=== PATIENT | female | born 1995 | race Caucasian/White ===

== ENCOUNTER 2024-03-16 09:02 | Outpatient (CLI) | payer OTHER, SELFPAY ==
--- NOTE | 2024-03-16 09:15 | CRLHL7_ITS ---
For Patients: As a result of the Cures Act, medical imaging exams and procedure reports are released immediately into your electronic medical record. You may view this report before your referring provider. If you have questions, please contact your health care provider. HISTORY: Dating and viability COMPARISON: None available of this gestation. TECHNIQUE: Transabdominal ultrasound examination of the early was performed. FINDINGS: A single intrauterine gestational sac is seen with a pole. The crown-rump length measurement of 3.6 cm gives an estimated gestational age of 10 weeks 3 days with an estimated date of delivery of 07/09/2024. This correlates well with the LMP of 01/03/2024 which gives a clinical age of 10 weeks 3 days. Regular cardiac activity is seen at 171 BPM. There is no sign of free fluid in the pelvis. There is a thick walled cyst in the right ovary measuring 2.0 x 1.5 x 1.7 centimeters consistent with a corpus luteum cyst of . The ovaries are otherwise normal in appearance. IMPRESSION: Single intrauterine gestation with estimated age of 10 weeks 3 days. Regular cardiac activity is seen. Dictated by Feng Gray MD @ 03/16/2024 10:55:47 AM (Electronically Signed)
== END 2024-03-16 09:03 | disposition home or self-care (01) ==
LOC: US 09:04
PROVIDERS: Visit Provider Advanced Practice Midwife
DX: Z34.91 Encounter for supervision of normal pregnancy, unspecified, first trimester (principal); Z3A.10 10 weeks gestation of pregnancy
CPT/HCPCS: 76801

== ENCOUNTER 2024-03-16 10:29 | Outpatient (CLI) | payer OTHER, SELFPAY | END 2024-03-16 10:30 | disposition home or self-care (01) | PROVIDERS: Visit Provider Advanced Practice Midwife | DX: Z34.91 Encounter for supervision of normal pregnancy, unspecified, first trimester (principal); Z3A.10 10 weeks gestation of pregnancy | CPT/HCPCS: 83021; 86592; 86703; 86704; 86706; 86762; 86787; 86803; 86850; 86900; 86901; 87086; 87340 ==

== ENCOUNTER 2024-04-20 09:36 | Outpatient (CLI) | payer OTHER, SELFPAY | END 2024-04-20 09:37 | disposition home or self-care (01) | LOC: NFLDREF 04-21 09:00 | PROVIDERS: PCP Advanced Practice Midwife; Visit Provider Advanced Practice Midwife | DX: Z34.02 Encounter for supervision of normal first pregnancy, second trimester (principal) | CPT/HCPCS: 87491; 87591 ==

== ENCOUNTER 2024-06-01 07:16 | Outpatient (CLI) | payer OTHER, SELFPAY | END 2024-06-01 07:17 | disposition home or self-care (01) | LOC: US 07:18 | PROVIDERS: Visit Provider Advanced Practice Midwife | DX: Z34.92 Encounter for supervision of normal pregnancy, unspecified, second trimester (principal); O35.GXX0 Maternal care for other (suspected) fetal abnormality and damage, fetal upper extremities anomalies, not applicable or unspecified; O35.HXX0 Maternal care for other (suspected) fetal abnormality and damage, fetal lower extremities anomalies, not applicable or unspecified; Z3A.21 21 weeks gestation of pregnancy | CPT/HCPCS: 76805 ==

== ENCOUNTER 2024-09-14 09:29 | Outpatient (CLI) | payer OTHER, SELFPAY ==
[2024-09-15 12:53] LABS: Strep B DNA Probe Negative (Negative)
[2024-09-15 13:03] LABS: Strep B Susceptibility Needed? No
== END 2024-09-14 09:30 | disposition home or self-care (01) ==
LOC: NFLDREF 09:29
PROVIDERS: Visit Provider Advanced Practice Midwife
DX: Z34.03 Encounter for supervision of normal first pregnancy, third trimester (principal)
CPT/HCPCS: 87081; 87653

== ENCOUNTER 2024-10-03 06:48 | Inpatient (IN) | payer OTHER, SELFPAY ==
[2024-10-03] VITALS (32 sets, daily range): BP systolic 92–130; BP diastolic 54–73; PULSE 73–105; RESP 16–20; TEMP 36.4–37.1; O2SAT 91–99; BMI 29.9
--- NOTE | 2024-10-03 08:42 | P.LDBA_ITS ---
Subjective History of Present Illness Date Seen: 10/03/24 Narrative: Patient is being admitted to Labor and Delivery for SROM. She is a 29 year old at 39.1 weeks gestation. Her full history and physical was dictated by Wayne Reynolds CNM on 09/21/24. Please see this for details. Cris experienced SROM at home yesterday around 2200 with a moderate amount of clear fluid per her report. She did call to inform the unit but choose to stay home at that time. She presented to the unit this am. Stated that she has had a few sporadic contractions but nothing regular and has only felt a few contractions since she arrived on the unit. Declined AmniSure. Educated on implications of declining and she is comfortable with the risks/benefits. She is continuing to leak a small amount of clear amniotic fluid on a regular basis since the original rupture. We had an in depth conversation about options for continuing to progress labor. We discussed the option of expectant management and the decreasing odds of spontaneous labor after almost 12 hours post ROM. We discussed risks of prolonged ROM and risk for infection. We discussed option of augmentation including Pitocin titration and PO Cytotec. Spent a significant amount of time discussing options, risks, benefits, and answering questions of Cris and her partner. She would like to proceed with PO Cytotec and will consider reevaluating after 2 doses or PRN. Encouraged resting if able since she endorses minimal sleep overnight and labor warm up and other methods of encouraging labor if she is unable to rest. Specific Issues/Plans / Partner: Сергей? H&P:? 09/21/2024 By Gail # Possible circumvallate placenta, recommended follow-up in 3rd trimester: declines # Missing anatomy of hands and feet, follow-up declined 1-2 weeks of home glucose monitoring completed, all values WNL. Unable to get numbers to forward from monitor. Imaging:? Anatomy US 06/01/2023-1. Possible circumvallate placenta. Third trimester follow-up recommended. 2. Incomplete visualization of the hands and feet due to position. Remainder of the anatomic survey normal. Short-term follow- up recommended. 3. Concordance of clinical and sonographic dating. 4. Mild bilateral renal pelviectasis measures up to 3.1 mm. This is considered within normal limits. Vaccinations:?? COVID: declined Flu: declined? Tdap: declined 32 week mental health: 08/17/2024? Last pap:? 12/2023 NIL, neg HPV? OB - Problem Based A/P Additional Plan (1) PROM (premature rupture of membranes): Status: Acute (2) Circumvallate placenta: Status: Acute Plan ASSESSMENT:? 29 at 39.1 weeks gestation? complicated by:?curcumvallate placenta Labor type: PROM, Early labor? Category 1 FHR pattern.?? Labor complicated by: ROM>10 hours without onset of contractions. ? GBS negative? ? PLAN:? 1. Routine intrapartum cares as ordered. Reviewed options of expectant management, PO Cytotec, or IV Pitocin titration. Elected to proceed with 2 doses of Cytotec and will evaluate after these 2 doses or PRN.? 2. Monitoring per policy, continuous with Cytotec per policy. 3. IV not needed at this time. Consider if patient condition changes per policy. 4. Planning unmedicated . Candidate for analgesia of choice.?? 5. Patient encouraged to reposition and ambulate to promote physiologic labor and .? 6. Anticipate ? Delivery/Labor/Induction Plan Plan: other (augmentation ) Induction method: per misoprostol protocol OB Result Labs Blood Type: B (+) positive Rubella: immune RPR/VDLR: nonreactive GBS Status: negative HBsAG: negative OB Exam Physical Exam Vital signs: Temp Pulse Resp BP Pulse Ox 98.3 F 73 18 92/54 L 98 10/03/24 07:44 10/03/24 06:13 10/03/24 06:13 10/03/24 06:13 10/03/24 06:13 Narrative: Psychiatric:? Alert and oriented x3? HEENT:? Normocephalic, atraumatic? Neck:? Supple without adenopathy or thyromegaly? Lungs:? Clear to auscultation bilaterally? Heart:? Regular rate and rhythm, no murmur, rub or gallop? Abdomen:? Soft, nontender, and gravid? Extremities:? No edema or erythema? Detailed Labor and Delivery Exam Patient Gravid: yes Dilation (cm): 1 (fingertip per RN exam ) Contraction Frequency: rare Contraction intensity: Mild
[2024-10-03] MEDS: miSOPROStoL 25 MCG/0.25 TABLET PO (09:35)
--- NOTE | 2024-10-03 12:34 | P.OBPN_ITS ---
Subjective Time Seen by Provider: 12:30 Date Seen: 10/03/24 Narrative: Cris received one dose of Cytotec and shortly after started kalli regularly. States that they are more painful than her ones prior to admit and that she is breathing with the, She is feeling them in her lower abdomen with some wrapping around to her back although she is starting to feel them in her upper abdomen as well. the next dose of Cytotec has been held. She is currently sitting on the birthing ball and was encouraged to continue with position changes to help promote labor and position. Offered SVE if she desired but discussed that it would not change plan of care at this time so she declined. She continues to leak clear fluid. 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 29 at 39.1 weeks gestation? complicated by:?curcumvallate placenta Labor type: PROM, Early labor, augmented ? Category 1 FHR pattern.?? Labor complicated by: SROM >12 hours ? GBS negative? ? PLAN:? 1. Routine intrapartum cares as ordered. Reviewed options of expectant management or addition of IV Pitocin titration. Elects to proceed with expectant management at this time. Will reevaluat if contractions don't continue to increase in intensity and frequency or PRN.? 2. Monitoring per policy, intermittent. 3. IV not needed at this time. Consider if patient condition changes per policy. 4. Planning unmedicated . Candidate for analgesia of choice.?? 5. Patient encouraged to reposition and ambulate to promote physiologic labor and .? 6. Anticipate ?
--- NOTE | 2024-10-03 16:12 | PM.OBPNL ---
Objective Vital Signs: Last Vital Signs Temp 98.2 F 10/03/24 15:27 Pulse 78 10/03/24 14:50 Resp 18 10/03/24 14:50 BP 130/73 10/03/24 14:50 Pulse Ox 99 10/03/24 14:50 Contractions Monitor mode: External Contraction pattern: Regular Contraction intensity: Moderate Assessment Amniotic Membrane Status: SROM Status: Category l Heart Rate Baseline: 135 Monitor Accelerations: Present Monitor Decelerations: None
--- NOTE | 2024-10-03 21:27 | P.OBPN_ITS ---
Subjective Time Seen by Provider: 19:45 Date Seen: 10/03/24 Narrative: Cris has continued to contract since this afternoon but they have decreased from every 2-3 minutes to every 2-5 minutes. She is breathing with them but is coping well. We discussed option of a SVE at this time and she was agreeable. She was found to be 1.5cm/90%/-2. We discussed options for continuing with labor including expectant management, IV Pitocin, and epidural analgesia. After a lengthy discussion with Cris and her partner and they had lots of questions. They took a long time to discuss and decided to proceed with Pitocin titration. She is considering an epidural and did discuss getting it now but has decided to wait and see how she tong with contractions. 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 29 at 39.1 weeks gestation? complicated by:?curcumvallate placenta Labor type: PROM, Early labor, augmented ? Category 1 FHR pattern.?? Labor complicated by: SROM >20 hours ? GBS negative? ? PLAN:? 1. Routine intrapartum cares as ordered. Reviewed options of expectant management or IV Pitocin titration. Elects to proceed with Pitocin titration at this time. 2. Monitoring per policy, continuous. 3. IV to be placed for Pitocin titration per policy. 4. Planning unmedicated . Candidate for analgesia of choice.?Considering epidural.? 5. Patient encouraged to reposition and ambulate to promote physiologic labor and .? 6. Anticipate .?
[2024-10-03 21:35] LABS: Basophils Percent Auto 0.1 % (0.0-3.0); Hematocrit 38.8 % (33.0-51.0); Hemoglobin* 13.4 gm/dL (12.0-16.0); Immature Granulocytes Pct Auto 0.4 %; Lymphocytes Percent Auto 4.7 % (20-44); Mean Corpuscular HGB Conc 35 gm/dL (32-36); Mean Corpuscular Hemoglobin 31 pg (26-34); Mean Corpuscular Volume 88 fL (80-100); Monocytes Percent Auto 2.8 % (0.0-11.0); Platelet Count* 188 K/uL (140-440); RDW Coefficient of Variation % 12.7 % (11.5-15.5); Red Blood Count 4.39 m/uL (4.00-5.20); White Blood Count* 16.12 K/uL (4.50-11.00)
[2024-10-03] MEDS: LACTATED RINGERS 1000 ML 1,000 ML 125 ML IV (21:36)
[2024-10-03] MEDS: OXYTOCIN 30 unit/500 ML in NS 30 UNIT/500 ML BAG IVPB (21:38)
[2024-10-03 21:59] LABS: Slide Review Reflex No
[2024-10-03] MEDS: LACTATED RINGERS 1000 ML 1,000 ML IV (23:26)
[2024-10-03] MEDS: LIDOCAINE 2% (PF) 5 ML VIAL EPIDURAL (23:31)
[2024-10-03] MEDS: ROPIVACAINE 0.2 % PF 10 ML INJ 20 MG EPIDURAL (23:37)
[2024-10-03] MEDS: ROPIVACAINE 0.2% 100 ml 100 ML 12 MG EPIDURAL (23:42)
--- NOTE | 2024-10-03 23:52 | PM.ANBPRC ---
PFSH PFSH Surgical History [place] teeth extracted ?K08.409 - Partial loss of teeth, unspecified cause, unspecified class (ICD-10) History of tonsillectomy and adenoidectomy ?Z90.89 - Acquired absence of other organs (ICD-10) Family History Mother No problems noted. Father No problems noted. Social History Narrative: SOCIAL? ? Education: Bachelors? ? 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 ? Partner: Сергей? works as mortician Lives with: Сергей ? ? Pets: none? ? Abuse: Denies past ? Unable to assess current, partner present? ? Special Diet: Denies? ? Ok with a blood transfusion: yes? ? Culture or episcopalian beliefs: denies? RISK FACTORS? ? Exercise Times/wk: 4-5 days a week, walking and lifting weights? ? Depression/Anxiety: denies? ? Previous Treatments NA ? Therapy NA SHANNAN: 0 PHQ 9: 0? ? Seat Belt Use: Routinely ? Smoking: Denies past/present? ? Alcohol/day: Denies while ? ?rare use when not Caffeine: occasional coffee? ? Drug Use: Denies past/present? What is your current living situation?: I presently have a place to live Problems where you live: no known problems In the past 12 months, utilities in danger of being shut off: no In past 12 months, lack of transportation kept you from medical appts, meetings, work, or getting things needed for daily living: no In the past 12 mos, have been you worried that your food would run out before you had money to buy more?: never true In the past 12 mos, the food you bought just didn't last and you didn't have money to buy more?: never true Smoking Status: Never smoker How often does anyone, including family, friends and others, physically hurt you: never How often does anyone, including family, friends and others, insult or talk down to you: never How often does anyone, including family, friends and others, threaten you with harm: never How often does anyone, including family, friends and others, scream or curse at you: never Meds Home Medications and Allergies Home Medications ?Medication ?Instructions ?Recorded ?Confirmed ?Type PMR-etvt-PR-omega 3 fatty no.1 27 1 cap PO DAILY 03/16/24 10/03/24 History mg-1 mg-300 mg capsule omega 9-sox-hmo-fish oil 1,200 mg 1 cap PO QDAY 03/16/24 10/03/24 History (144 mg-216 mg) capsule (Fish Oil) cholecalciferol (vitamin D3) 250 250 mcg PO QDAY 04/20/24 10/03/24 History mcg (10,000 unit) capsule Allergies Allergy/AdvReac Type Severity Reaction Status Date / Time No Known Drug Allergies Allergy Verified 09/28/24 08:54 Results Labs Labs: Laboratory Results - last 24 hr 10/03/24 21:29 WBC 16.12 H RBC 4.39 Hgb 13.4 Hct 38.8 MCV 88 MCH 31 MCHC 35 RDW Coeff of Wayne 12.7 Plt Count 188 Neut % (Auto) 92.0 H Lymph % (Auto) 4.7 L [place] % (Auto) 2.8 Eos % (Auto) 0.0 Baso % (Auto) 0.1 Neut # (Auto) 14.80 H Lymph # (Auto) 0.80 L [place] # (Auto) 0.50 Eos # (Auto) 0.00 Baso # (Auto) 0.00 Abs Immat Gran (auto) 0.10 Imm/Tot Granulo (auto) 0.4 Blood Type B Positive Antibody Screen NEGATIVE Vital Signs Vital Signs: Last Vital Signs Temp 98.5 F 10/03/24 23:01 Pulse 88 10/03/24 23:50 Resp 16 10/03/24 21:44 BP 125/56 L 10/03/24 23:50 Pulse Ox 98 10/03/24 23:41 Weight: 81.647 kg Height: 165.1 cm Anesthesia Procedures Epidural Insertion Patient Location: OB Start Time: 23:00 Stop Time: 23:54 Start Date: 10/03/24 Stop Date: 10/03/24 Reason for Block: procedure for pain Patient Position: sitting Performed By: Matthew Guillen Preanesthetic Checklist: IV checked, risks and benefits discussed, surgical consent, monitors and equipment checked, pre-op evaluation, timeout performed and anesthesia consent Prep: chlorhexidine gluconate Monitoring: blood pressure monitoring, continuous pulse oximetry and heart rate Approach: midline Vertebral Space: lumbar (1-5) Epidural Technique: HANH air Needle Type: Tuohy needle Injection Technique: continuous catheter Needle gauge: 17 Needle Length (cm): 10 cm Needle Insertion Depth (cm): 7 Catheter Gauge: 19 Catheter Type: multi-orifice Catheter at skin depth (cm): 13 Test Dose Result: negative and lidocaine 1.5% with epinephrine 1 to 200,000
[2024-10-04] VITALS (84 sets, daily range): BP systolic 96–146; BP diastolic 50–73; PULSE 70–112; RESP 14–18; TEMP 36.4–38; O2SAT 93–99
[2024-10-04] MEDS: LACTATED RINGERS 1000 ML 1,000 ML 500 ML IV (05:37)
[2024-10-04] MEDS: ROPIVACAINE 0.2% 100 ml 100 ML 12 MG EPIDURAL (06:41)
[2024-10-04] MEDS: ACETAMINOPHEN 500 MG TABLET 1000 MG PO ×2 (06:54→12:54)
--- NOTE | 2024-10-04 07:13 | P.OBPN_ITS ---
Subjective Time Seen by Provider: 06:40 Date Seen: 10/04/24 Narrative: Cris has a Pitocin titration infusing and did receive an epidural last evening which is effective. She was able to get some rest over night and has been repositioned frequently with help from the staff development coordinator rn. RN cervical exam around 0450 did show 6cm/thin/0 station. At 0620 I was asked to review the FHR tracing. I reviewed and came in to evaluate and discuss with the patient. She was also found to have a fever of 100.4 at that time. On review the strip baseline increased from 145 to 155's with moderate variability but no 15x15 accelerations noted for greater than 1.5 hours. I did a SVE around 0645 and she was found to be 8cm/90%/0 station. She did feel very warm on exam. We discussed chorioamnionitis, the signs/symptoms of it and its implications on labor, delivery and health. We discussed the recommendation for a delivery as it is anticipate she is still likely multiple hours away from delivery vaginally. We discussed in depth the risks to Cris and the fetus with delayed delivery. They had lots of questions about antibiotics and their implications on babies health. We discussed the risks of antibiotic in labor and with a delivery vs the risks if they would need IV antibiotics after . Ambrosio was updated of the situation at the patients bedside per her request. They requested a short time to discuss between themselves before ultiimatly making a decision. She was appropriatly tearful during this conversation. Care handed off to Ambrosio at this time. Objective Vital Signs: Last Vital Signs Temp 100.3 F H 10/04/24 06:50 Pulse 105 H 10/04/24 06:35 Resp 18 10/04/24 06:19 BP 103/50 L 10/04/24 06:35 Pulse Ox 98 10/03/24 23:41 Pelvic Exam Dilation (cm): 8 Effacement (%): 90 Station: 0 Contractions Monitor mode: External Contraction Frequency: 2-5 Contraction pattern: Regular Contraction intensity: Strong/Firm Pitocin Rate (mU/min): 7 Assessment Assessment: active labor Station: 0 Amniotic Membrane Status: SROM Status: Category l Heart Rate Baseline: 155 Mcfp Variability: Moderate (6-25) Monitor Accelerations: Absent Monitor Decelerations: None Plan Plan: ASSESSMENT:? 29 at 39.2 weeks gestation? complicated by:?curcumvallate placenta Labor type: SROM, active labor, augmented with Pitocin, maternal fever with suspected chorioamnionitis ? Category 2 FHR pattern.?? Labor complicated by: SROM >33 hours ? GBS negative? ? PLAN:? 1. Discussed and recommended proceeding to delivery. They are given time to discuss and process. Questions have been answered. 2. Monitoring per policy, continuous. 4. Effective epidural in place.? 5. Patient encouraged to reposition and ambulate to promote physiologic labor and .? 6. Report given and care handed off to Gloria Stahl CNM?
[2024-10-04] MEDS: LACTATED RINGERS 1000 ML 1,000 ML 125 ML IV (07:33)
[2024-10-04] MEDS: AMPICILLIN 2 GM in 0.9 % SODIUM CHLORIDE Mini-bag 100 ML IVPB ×2 (07:54→13:47)
--- NOTE | 2024-10-04 07:57 | P.OBCN_ITS ---
OB - CN: HPI Date of Consult Time Seen by Provider: 07:45 Date Seen: 10/04/24 Patient: [facility] Patient Consult date: 10/04/24 Requesting Physician: Ambrosio Stahl CNM Primary Care Provider: Not a Local Provider Consult Narrative Narrative: Delayed documentation due to patient care. Cris is a 29yo at 39w2d GA admitted on 10/03 for PROM at 2200 on 10/02. is complicated by circumvallate placenta, incomplete visualization of hands/feet on FAS (declined follow up), declined mid- labs (2 weeks of BG monitoring was normal). Patient has been managed by CNM service, where she received 1 dose of cytotec and pitocin was started at about 2200 on 10/03 when her cervix was 1.5cm dilated. She received epidural overnight, where cervix was then noted to be 6cm/100/0 at 0440 with appropriate change in the active phase of labor to 8cm at 0640. Category 2 FHR tracing intermittently during active phase of labor for minimal variability and tachycardia. Around 0630, she developed maternal chills and . She was diagnosed with intraamniotic infection given maternal fever, chills, maternal and tachycardia. I was consulted by Ambrosio Stahl at 0715 to discuss labor course and management of chorioamnionitis. Cris and her expressed concern with antibiotic therapy, where there was additionally some discussion about proceeding to by offcoming CNM in the setting of her new chorioamnionitis and category 2 FHR tracing. I requested tylenol and a IVF bolus be administered (if not done previously) and presented to the bedside. On arrival, Cris affirmed the above history. She notes that this was not her intended labor course and is understandably frustrated. She has several concerns about next steps. She notes her chills have temporarily improved. Pain is well controlled with epidural, though she does have some persistent back pain and her right leg feels less numb the left. Denies fundal tenderness or purulent discharge. History History 1 Elective abortions Para 0 Spontaneous abortions Hx # Term Pregnancies Ectopic pregnancies Hx # Pregnancies Multiple births Number of Living Children 0 Labs Blood type: B (+) positive Rubella: immune RPR/VDLR: nonreactive GBS status: negative HBsAG: negative OB Labs: Lab Assessment Start: 10/03/24 06:39 Freq: ONCE Status: Complete Protocol: PC.OBGBS Activity Type Activity Date Activity User E-sign Co-sign Detail Recorded Client Recorded Date Recorded By Document 10/03/24 06:39 [email or web address] No Response 10/03/24 07:02 [email or web address] 10/03/24 06:39 Lab Assessment GBS Status negative Is Patient Allergic to Penicillin? No No Treatment Needed OK Are Labs Available Yes Maternal Blood Type B Maternal RH Factor Positive Evaluate Maternal Rubella Immune Status Immune Hepatitis B Surface Antigen Negative Maternal HIV Status Negative Maternal Syphillis (RPR) Status Negative PFSH PFS Surgical History Hensel teeth extracted ?K08.409 - Partial loss of teeth, unspecified cause, unspecified class (ICD-10) History of tonsillectomy and adenoidectomy ?Z90.89 - Acquired absence of other organs (ICD-10) Family History Mother No problems noted. Father No problems noted. Social History Narrative: SOCIAL? ? Education: Bachelors? ? 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 ? Partner: Сергей? works as mortician Lives with: Сергей ? ? Pets: none? ? Abuse: Denies past ? Unable to assess current, partner present? ? Special Diet: Denies? ? Ok with a blood transfusion: yes? ? Culture or restorationist beliefs: denies? RISK FACTORS? ? Exercise Times/wk: 4-5 days a week, walking and lifting weights? ? Depression/Anxiety: denies? ? Previous Treatments NA ? Therapy NA SHANNAN: 0 PHQ 9: 0? ? Seat Belt Use: Routinely ? Smoking: Denies past/present? ? Alcohol/day: Denies while ? ?rare use when not Caffeine: occasional coffee? ? Drug Use: Denies past/present? What is your current living situation?: I presently have a place to live Problems where you live: no known problems In the past 12 months, utilities in danger of being shut off: no In past 12 months, lack of transportation kept you from medical appts, meetings, work, or getting things needed for daily living: no In the past 12 mos, have been you worried that your food would run out before you had money to buy more?: never true In the past 12 mos, the food you bought just didn't last and you didn't have money to buy more?: never true Smoking Status: Never smoker How often does anyone, including family, friends and others, physically hurt you : never How often does anyone, including family, friends and others, insult or talk down to you: never How often does anyone, including family, friends and others, threaten you with harm: never How often does anyone, including family, friends and others, scream or curse at you: never Meds Home Medications and Allergies Home Medications ?Medication ?Instructions ?Recorded ?Confirmed ?Type NVU-qezh-IN-omega 3 fatty no.1 27 1 cap PO DAILY 03/1610/03/24 History mg-1 mg-300 mg capsule omega 5-cvr-qgh-fish oil 1,200 mg 1 cap PO QDAY 10/03/24 History (144 mg-216 mg) capsule (Fish Oil) cholecalciferol (vitamin D3) 250 250 mcg PO QDAY 04/2010/03/24 History mcg (10,000 unit) capsule Allergies Allergy/AdvReac Type Severity Reaction Status Date / Time No Known Drug Allergies Allergy Verified 09/28/24 08:54 OB - H&P: Exam Physical Exam: Vital signs: Temp Pulse Resp BP Pulse Ox 100.3 F H 110 H 18 121/59 L 98 10/04/24 06:50 10/04/24 07:20 10/04/24 06:19 10/04/24 07:20 10/04/24 07:56 Narrative: VS as noted above. General: Alert and oriented, in no acute distress Psych: Appropriate mood and affect, intermittent tearfulness Abdomen: Gravid NST: Category 1 at present - baseline 155bpm, moderate variability, 10x10 accels seen and no decelerations [place]: Kalli in couplets, kalli every 2-6 minutes OB - Results Labs Labs: Short CBC 10/03/24 Range/Units 21:29 WBC 16.12 H (4.50-11.00) K/uL Hgb 13.4 (12.0-16.0) gm/dL Hct 38.8 (33.0-51.0) % Plt Count 188 (140-440) K/uL OB - CN: A/P Assessment and Plan (1) PROM (premature rupture of membranes): Status: Acute (2) Circumvallate placenta: Status: Acute Plan Cris is a 29yo ongoing IOL in the setting of PROM now complicated by chorioamnionitis. Consult was requested for discussion of IV antibiotics and labor management by Ambrosio Stahl CNM. See details above. We discussed the diagnosis of chorioamnionitis, including how that diagnosis was met for Cris by fevers, maternal/ tachycardia and chills. Discussed risk factor of prolonged ROM as a contributor to the development of chorioamnionitis. I explained the risks of this condition, including infection, tachycardia, nonreassuring heart tones, low APGARs and NICU admission. Explained maternal risks as well, including labor dystocia, delivery, PPH, endometritis and even maternal sepsis. Explained the standard of care in treatment of chorioamnionitis is IV antibiotics and timely delivery. Explained the chorioamnionitis in isolation is not an indication for C/S, however this would be recommended in the setting of labor dystocia or persistent category 2 FHR tracing. Fortunately, during my counseling the FHR was noted to improve to a baseline of 160bpm (then 150bpm) with moderate variability, 10x10 accelerations present, no decelerations. As such, I do feel it is reasonable to continue her induction of labor but I would recommend we do so with active management and close interval monitoring. I would strongly recommend we initiate IV antibiotics with ampicillin and gentamicin now, in order to improve both maternal and status and try to minimize the risks of chorioamnionitis. Cris and her expressed hesitance with this effort, where her 's sites a family member had micro volume issues and how immune conditions that they attribute to the use of intrapartum antibiotics. Though I understand their concerns, I explained that IV antibiotics would be the standard of care this setting. In addition, I am aware of no long-term studies to suggest harm (including microbiome/autoimmune) with the use of antibiotics for this clear indication rather I feel it would be significantly beneficial to improve the maternal/ status, minimize risks and hopefully avoid the setting of infection or sepsis after delivery. Her notes a worst case scenario outcome would include infection requiring IV antibiotics, where I explained the best thing we can do to try to prevent this is to start treatment with IV antibiotics and work toward delivery for source control. After counseling, Cris expressed understanding and is agreeable to plan. Her did ask a few further thoughtful questions, where ultimately they are in agreement. I explained that with treatment of chorioamnionitis and stable maternal/ status, we can continue her induction. Again, I explained that I would recommend we do so in an active fashion with continued titration of Pitocin pending heart rate/toco data. Explained that chorioamnionitis is a risk factor for labor dystocia due to suboptimal uterine contractibility as well as hemorrhage. If she were to have a labor dystocia in the active phase, I explained that we would have a lower threshold to proceed with primary . In addition, if she does achieve complete cervical dilation, we would diligently monitor for appropriate descent of the fetus through her 2nd stage as well. If we do proceed to , I explained pre-op antibiotics for surgical prophylaxis would be required (ampicillin and azithromycin) and one dose to 24 hours of ampicillin/gentamicin and clindamycin would be indicated. Regardless of her mode of delivery, I explained that it is possible that infection could still occur. In addition, she is at significantly increased risk of hemorrhage in the setting of prolonged rupture of membranes and chorioamnionitis. I explained the standard risks of including bleeding, infection, damage to surrounding structures - where if possible, a vaginal may lead to lower risk of hemorrhage and endometritis in the . Recommend active management of the 3rd stage with IV Pitocin and low threshold for further uterotonics/intervention if hemorrhage occurs. Patient expressed understanding and is agreeable to plan. Patient would like a cervical check to assess progress, as she is feeling more back/rectal pressure. IV ampicillin and gentamicin was started after patient consent. Gave patient her opportunity to answer any lingering questions, where no further questions were noted. They are agreeable to further MD consultation if needed, particularly in the setting of labor dystocia or nonreassuring heart tones that would prompt . Plan to resume care by Ambrosio Stahl CNM - with plan to actively manage the active phase of labor, 2nd stage and 3rd stage of labor. I am available for re-consultation at any point in time if needed and will follow peripherally in the interim.
--- NOTE | 2024-10-04 08:05 | PM.OBPNL ---
Subjective Date Seen: 10/04/24 Narrative: ?Cris is coping with labor pain/contractions. ?Сергей is with her for support. ?She is using an epidural for comfort and pain management.?We had a long conversation with Dr. Saenz about the plan of care going forward, see her note. They have agreed to antibiotic treatment at this time. She requested a cervical exam as she is feeling more back pain with contractions now. Discussed with them continuing to titrate IV Pitocin. Objective Exam: VSS, afebrile General Appearance:? Calm, cooperative. ?No acute distress. ? Psychiatric Exam: Alert and oriented, appropriate affect Abdomen: Gravid Ctx: ?Q 1-6 min apart. ? ? ?Strong FHTs: ?Baseline: 155. ? ? Variability: mod. ?Accels: +. ? ?Decels: ?-. SVE: 9/100/+1 Membranes: ?SROM >24 hours Vital Signs: Last Vital Signs Temp 100.3 F H 10/04/24 06:50 Pulse 110 H 10/04/24 07:20 Resp 18 10/04/24 06:19 BP 121/59 L 10/04/24 07:20 Pulse Ox 98 10/04/24 08:01 Pelvic Exam Dilation (cm): 8 Effacement (%): 90 Station: 0 Contractions Monitor mode: External Contraction pattern: Regular Contraction intensity: Strong/Firm Pitocin Rate (mU/min): 7 Assessment Assessment: active labor Station: +1 Amniotic Membrane Status: SROM Status: Category l Heart Rate Baseline: 155 Senior Living Variability: Moderate (6-25) Monitor Accelerations: Present Monitor Decelerations: None Plan Plan: Assessment:?? at 39.2 weeks gestation?? GBS negative Patient is coping with challenges of labor.?? Labor type: Augmented, Active labor? Category 1 FHR pattern.? complicated by: circumvallate placenta Labor complicated by: PROM >24 hours, chorioamnionitis Plan:?? Antibiotic prophylaxis treatment per protocol Continue with routine intrapartum cares as ordered.?? Patient encouraged to move and change positions to promote physiologic labor and , RN to assist.?? Epidural per anesthesia. Continue to titrate IV Pitocin per protocol Anticipate progress to NVD. ?
[2024-10-04] MEDS: GENTAMICIN IVPB (08:42)
[2024-10-04] MEDS: SODIUM CHLORIDE 0.9% IVPB (08:42)
--- NOTE | 2024-10-04 09:25 | PM.OBPNL ---
Subjective Date Seen: 10/04/24 Narrative: ?Cris is coping well with labor pain/contractions. ?Сергей is with her for support. ?She is using an epidural for comfort and pain management.?The RNs have been helping her do side lying release and other position changes over the last hour. She is feeling more rectal pressure with contractions. Сергей continues to ask questions around labor progress and antibiotic treatment, he is concerned about all the possibilities around delivery but is asking appropriate questions at this time. All questions answered as able and continue to communicate that there are many unknowns at this time. They are agreeable to current plan of care. Has started IV antibiotics. Objective Exam: VSS, afebrile General Appearance:? Calm, cooperative. ?No acute distress. ? Psychiatric Exam: Alert and oriented, appropriate affect Abdomen: Gravid Ctx: ?Q 2-3 min apart. ? ? ?Strong FHTs: ?Baseline: 150. ? ? Variability: moderate. ?Accels: +. ? ?Decels: ?-. SVE: 9/100/+1 Membranes: ?SROM >24 hours Vital Signs: Last Vital Signs Temp 99.6 F 10/04/24 08:06 Pulse 93 10/04/24 09:23 Resp 14 10/04/24 08:06 BP 108/52 L 10/04/24 09:23 Pulse Ox 98 10/04/24 09:22 Contractions Pitocin Rate (mU/min): 8 Assessment Amniotic Membrane Status: SROM Status: Category l Heart Rate Baseline: 150 Prototype Machine Operator Variability: Minimal (3-5) Monitor Accelerations: Present Monitor Decelerations: None Plan Plan: Assessment:?? at 39.2 weeks gestation?? GBS negative Patient is coping with challenges of labor.?? Labor type: Augmented, Active labor? Category 1 FHR pattern.? complicated by: circumvallate placenta Labor complicated by: PROM >24 hours, Chorioamnionitis Plan:?? Continue to titrate IV Pitocin per protocol Antibiotic prophylaxis treatment per protocol Continue with routine intrapartum cares as ordered.?? Patient helped to move and change positions to promote physiologic labor and .?? Epidural infusing per anesthesia Anticipate progress to NVD. ?
--- NOTE | 2024-10-04 10:38 | PM.OBPNL ---
Subjective Date Seen: 10/04/24 Narrative: ?Cris is feeling more rectal pressure and low back pain with contractions, she continues with her epidural for pain and is using the bolus doses. Сергей is at her bedside. She has made slow change in the last hour and is now a rim. There is an odor to her vaginal discharge and there is meconium. Objective Exam: VSS, afebrile General Appearance:? Calm, cooperative. ?No acute distress. ? Psychiatric Exam: Alert and oriented, appropriate affect Abdomen: Gravid Ctx: ?Q 1.5-3 min apart. ? ? ?Strong FHTs: ?Baseline: 140. ? ? Variability: moderate. ?Accels: -. ? ?Decels: ?one variable with contraction. SVE: 9.5/100/+1 Membranes: ?PROM > 24 hours. Vital Signs: Last Vital Signs Temp 97.7 F 10/04/24 10:22 Pulse 103 H 10/04/24 10:21 Resp 14 10/04/24 08:06 BP 109/55 L 10/04/24 10:21 Pulse Ox 99 10/04/24 09:42 Pelvic Exam Dilation (cm): 9.5 Effacement (%): 100 Station: +1 Contractions Monitor mode: External Contraction pattern: Regular Contraction intensity: Strong/Firm Pitocin Rate (mU/min): 14 Assessment Assessment: active labor Station: +1 Amniotic Membrane Status: SROM Status: Category ll Heart Rate Baseline: 140 Supervisor Grinding Variability: Moderate (6-25) Monitor Accelerations: Present Monitor Decelerations: Variable Plan Plan: Assessment:?? at 39.2 weeks gestation?? GBS neg Patient is coping well with challenges of labor.?? Labor type: Augmented, Active labor? Category 2 FHR pattern.? complicated by: circumvallate placenta Labor complicated by: PROM >24 hours, Chorioamnionitis Plan:?? Continue IV Pitocin per protocol Antibiotic prophylaxis treatment per protocol Continue with routine intrapartum cares as ordered.??? Epidural continues to infuse per anesthesia Anticipate progress to NVD. ?
--- NOTE | 2024-10-04 12:50 | W.PM.OBVAGDE ---
OB Procedure Vag Delivery Mother Details Mother Details: The patient is a 29 year-old, 1, Para 0, admitted on 10/03/24 at 39.1 weeks gestation. : 1 Para: 1 Weeks Gestation: 39.2 Admission Date: 10/03/24 Additional Details Amniotic Membrane Status: SROM Amniotic Membrane Rupture Date: 10/02/24 Amniotic Membrane Rupture Time: 22:30 Amniotic Membrane Fluid Description: Clear and Meconium Stained Analgesia/Anesthesia Type: Epidural Waterbirth: No Pitcoin: Yes Intrapartal Events: Labor Augmentation and Febrile (>100F) Delivery augmentation: pitocin Labor Onset: 04:40 Complete: 10:56 Pushin:56 Heart: heart tones during second stage were Cat II with moderate variability with occasional variable and early decelerations. Delivery Details Delivery Date: 10/04/24 Delivery Time: 12:16 Route of delivery: Infant Gender: Female Viability: Alive; Heart Rate Present Position at Delivery: OA Delivery Details: 29 y.o?at 39.2 weeks.? Cris was admitted with SROM of clear fluid which occurred on 10/02/24 at 2230. She was augmented with IV Pitocin per protocol and received an epidural for pain management. She developed a fever in labor, temp max 100.4, last fever was at 0650. She was started on IV antibiotics for probable chorioamnionitis. Her amniotic fluid was initially clear but near the end of her labor there was meconium staining noted. ? She became complete at 1056.??She pushed in low hugo and right tilt positions effectively.? Spontaneous vaginal delivery at 1216 of?a viable? female .??Delivered in vertex OA position.??Shoulders delivered easily.? Spontaneous cry noted.??Infant placed on maternal abdomen.??Cord?was clamped and cut after a 2 minute delay.??Nose and mouth were bulb suctioned.???Pedatric provider present in the room but did not need to take baby to warmer. Shoulder dystocia: no? Nuchal cord: no? Meconium stained?fluid: yes? Water : no? ? ? 8 at 1 minute and 9 at 5 minutes.? Weight is pending. ? Placenta delivered spontaneously and?complete?at 1223 with a?3 vessel?cord.?? Bleeding controlled with fundal massage and?pitocin?for AMTSL.? ? Lacerations:? ?1st degree with right labial extension, not bleeding, not repaired? ? Bleeding?post delivery?was: moderate. ?The fundus was firm to palpation.? Blood loss: 525?mL.? Blood loss measurement type: QBL? ? ? Sponge,?lap?and needles counts are correct.? Mother and infant were stable after delivery.? 1 Minute Interval Total Score: 8 5 Minute Interval Total Score: 9 Additional Details Shoulder Dystocia: No Placenta Delivery Time: 12:23 Placental Delivery Description: Spontaneous Procedure Done: Global Blood Loss: 525 Laceration: Perineal - 1st Degree Blood Loss Measurement Type: QBL Bakri Used: No Sponge/Need Count Correct: Yes Cord Vessel Description: 3 Vessels Event Summary Status: Mother and were stable after delivery. Disposition: floor
[2024-10-04] MEDS: IBUPROFEN 600 MG TABLET PO ×2 (13:46→20:36)
[2024-10-05 01:45] VITALS: BP 104/67; PULSE 72; RESP 16; TEMP 36.3
[2024-10-05 04:52] VITALS: BP 110/70; PULSE 73; RESP 16; TEMP 36.7; O2SAT 96
--- NOTE | 2024-10-05 07:57 | PM.OBPNVD1 ---
OB - PN:Subj Subjective Date Seen: 10/05/24 Patient comments OB post-: no complaints, pain well controlled, tolerating diet and flatus present [place] status: and doing well [place] feeding status: exclusively Narrative: Cris feels well.? Her pain is well controlled with current medications.? She has no new complaints.? Urinary output is adequate and she is voiding without difficulty.? Has a good appetite, is tolerating a general diet, is passing flatus, and has had a bowel movement.? Has scant amount of rubra lochia.? She is ambulating well.?She is working on with help. They state they had a very good experience and are grateful for the care and teams they have had. OB - PN: Obj Exam Physical Exam: Vital signs: Temp Pulse Resp BP Pulse Ox O2 Del Method 98.0 F 73 16 110/70 96 Room Air 10/05/24 04:52 10/05/24 04:52 10/05/24 04:52 10/05/24 04:52 10/05/24 04:52 10/05/24 04:52 Narrative: GENERAL APPEARANCE:? normal affect, alert, no distress? MOOD:? appropriate? CHEST:? clear to auscultation and percussion? HEART:? regular rate and rhythm? ABDOMEN:? soft, non-tender the uterine fundus is U/2 and is appropriate for the stage of recovery.? PERINEUM:? mild edema of the perineum, there is a 1st degree laceration that is healing well.? EXTREMITIES:? normal and no edema? OB - PN: A/P Delivery Assessment and Plan (1) PROM (premature rupture of membranes): Status: Acute (2) Circumvallate placenta: Status: Acute (3) Lactating mother: Status: Acute (4) care following vaginal delivery: Status: Acute (5) Prolonged rupture of membranes, greater than 24 hours, delivered: Status: Acute Plan day: 1 Plan: routine care Comments: Anticipate discharge home tomorrow.
[2024-10-05 08:40] VITALS: BP 111/72; PULSE 79; RESP 16; TEMP 36.4; O2SAT 98
--- NOTE | 2024-10-05 09:22 | PM.ANPOST ---
Post Anesthesia Note Post Anesthesia Note Patient seen: Inpatient Respiratory Status: adequate Cardiovascular Status: adequate Mental Status: baseline Pain: adequate Temp: baseline Anesthetic awareness: N/A Complications: none Follow care: none
[2024-10-05 12:15] VITALS: BP 118/66; PULSE 90; RESP 16; TEMP 36.5; O2SAT 97
[2024-10-05 14:33] LABS: Rapid Plasma Reagin (RPR) Non Reactive (Non Reactive)
[2024-10-05] MEDS: IBUPROFEN 600 MG TABLET PO (19:55)
[2024-10-05 21:05] VITALS: BP 110/74; PULSE 91; RESP 17; TEMP 36.5
[2024-10-06 04:44] VITALS: BP 108/68; PULSE 66; RESP 17; TEMP 36.6; O2SAT 98
--- NOTE | 2024-10-06 07:11 | PM.OBDSVD1 ---
DS: Providers Provider Date Seen: 10/06/24 Date of admission: 10/03/24 06:48 Primary care physician: Not a Local Provider Admitting Clinician: Naz Mcclendon CNM Attending Physician on discharge: Naz Mcclendon CNM DS: Diagnosis Discharge Diagnosis (1) care following vaginal delivery: Status: Acute (2) Chorioamnionitis: Status: Acute (3) Lactating mother: Status: Acute (4) Prolonged rupture of membranes, greater than 24 hours, delivered: Status: Acute Exam Narrative: Exam Narrative: GENERAL APPEARANCE:? normal affect, alert, no distress MOOD:? appropriate CHEST:? clear to auscultation HEART:? regular rate and rhythm ABDOMEN:? soft, non-tender the uterine fundus is At Umbilicus, Midline and is appropriate for the stage of recovery. PERINEUM:? mild edema of the perineum, there is a Perineal Laceration,?1st degree, that is healing well. EXTREMITIES:? normal and no edema Const: Vital Signs, click to edit/add: Vital Signs - 24 hr 10/05/24 08:40 10/05/24 12:15 10/05/24 21:05 Temperature 97.5 F L 97.7 F 97.7 F Pulse Rate [Pulse Oximeter] 79 90 91 Respiratory Rate 16 16 17 Blood Pressure [Le ft Arm] 111/72 118/66 110/74 Pulse Oximetry 98 97 Oxygen Delivery Me thod Room Air Room Air Room Air 10/06/24 04:44 Temperature 97.9 F Pulse Rate [Pulse Oximeter] 66 Respiratory Rate 17 Blood Pressure [Le ft Arm] 108/68 Pulse Oximetry 98 Oxygen Delivery Me thod Room Air Documenting provider has reviewed patient's vital signs: yes OB - DS: Summary Hospital Course Hospital Course: Cris is a 29 y.o. G 1 P 1 who was admitted to [facility]. ?She had a NVD that was complicated by chorioamnionitis. The patient feels well. ?The pain is well controlled with current medications. ?She has no new complaints. ?She is breast feeding and reports things are going well. the patient has done well.? Vitals have been stable. She has remained afebrile since delivery. She received antibiotics.? Has a good appetite, is tolerating a general diet. ?She is voiding without difficulty.? She is passing gas and has had a small bowel movement.? She is ambulating and denies any dizziness.? Has small amount of rubra lochia. She is planning NFP for prevention. Problems: None Discharge home with baby.? Follow up in 2 weeks and 6 weeks.? , may see if needed? Hgb 13.4. ?? For pain control of perineum, breast and pelvic pain, take 600 mg Ibuprofen every 6 hours as needed by mouth or 1000 mg acetaminophen (Tylenol) every 6 hours by mouth as needed. You can alternate these so you are taking something every 3 hours as needed. A heating pad can also be used for your abdomen or breasts. You may also take docusate sodium up to twice daily to soften your stools and help to prevent constipation. You may wean off of it when your stools return to normal.? Peripartum Data delivery method: Vaginal Laceration description: Perineal - 1st Degree (not repaired) complications: none Gender: Female Discharge Plan: Home Status at Discharge Functional status at discharge: independent ambulation Overall status at discharge: patient is progressing back to baseline Time Spent with Patient Time attestation: Total time spent providing and/or coordinating discharge services: Time spent: Less than 30 minutes Discharge Plan Discharge Disposition: Home, Self-Care Date of Admission: 10/03/24 06:48 Attending Provider on Discharge: Naz Mcclendon Primary Care Provider: Provider,Not a Local Condition: Stable Anticipated Discharge Date/Time: 10/06/24 12:00 Discharge Medications: New acetaminophen 500 mg Tablet 1,000 mg PO Q6H PRNQty: 0 0RF ibuprofen 600 mg Tablet 600 mg PO Q6H PRNQty: 0 0RF docusate sodium 100 mg Capsule 100 mg PO DAILY Qty: 0 0RF Continued cholecalciferol (vitamin D3) 250 mcg (10,000 unit) capsule 250 mcg PO QDAY VFY-yxon-UC-omega 3 fatty no.1 27-1-300 mg capsule 1 cap PO DAILY omega 2-mjv-zcn-fish oil [Fish Oil] 1,200 (144-216) mg capsule 1 cap PO QDAY Discharge Orders: Discharge Order (Routine); Ordered 10/06/24 Ordered By: Naz Mcclendon Patient Education: OB Over the Counter Medication Information, OB Vaginal/Breast Feeding Additional Instructions: Discharge instructions were reviewed with the patient including signs and symptoms of infection and home going medications Nothing vaginally for 6 weeks: no tampons or intercourse Off Work or School for 6 weeks 2-week visit: discuss infant feeding concerns, review control options and screen for anxiety/depression. 6-week visit for an annual exam. consultation services are available to all mothers and babies for the first year after delivery.? To make an appointment, please call [phone]. Activity Level: Activity as Tolerated and No strenuous activity Discharge Diet: Regular Follow Up Appointments: [facility] [Provider Group] Forms: [employer] Info Instructions
[2024-10-06 08:30] VITALS: BP 110/70; PULSE 65; RESP 17; TEMP 36.8; O2SAT 98
[2024-10-06 16:33] VITALS: BP 110/70; PULSE 69; RESP 18; O2SAT 97
== END 2024-10-06 18:35 | disposition home or self-care (01) | DRG 805 ==
LOC: OB OUT 06:48 → OB 10-04 08:32
PROVIDERS: Advanced Practice Midwife; Admitting Provider Advanced Practice Midwife; Referring Provider Advanced Practice Midwife; Visit Provider Advanced Practice Midwife
DX: O42.12 Full-term premature rupture of membranes, onset of labor more than 24 hours following rupture (principal); O41.1230 Chorioamnionitis, third trimester, not applicable or unspecified; Z37.0 Single live birth; O76 Abnormality in fetal heart rate and rhythm complicating labor and delivery; O77.0 Labor and delivery complicated by meconium in amniotic fluid; O70.0 First degree perineal laceration during delivery; O43.113 Circumvallate placenta, third trimester; Z3A.39 39 weeks gestation of pregnancy
CPT/HCPCS: 01967; 36415; 59200; 85025; 86592; 86850; 86900; 86901; 88307; G0463; A9270; J0290; J1580; J2795; J7120

== ENCOUNTER 2024-10-26 07:56 | Outpatient (CLI) | payer OTHER, SELFPAY ==
--- NOTE | 2024-10-26 15:48 | W.PM.LAC.MC ---
Consult Note - Mom Date of Visit Date of visit: 10/26/24 Reason for consultation: Infant Weight Concern and Other (milk transfer question) Visit Code: Visit Patient's Information Phone number: [phone] : 1 Para: 1 Allergies No Known Drug Allergies Allergy (Verified 10/20/24 14:00) Mother's Medical History: Medical History (Updated 10/14/24 @ 00:01 by Background Daemon) Chorioamnionitis ?O41.1290 - Chorioamnionitis, unspecified trimester, not applicable or unspecified (ICD-10) Delivery Information Delivery type: Vaginal Gestational Age: 39+2 Gestational Weight For Age: AGA Weight: 3.145 kg Discharge Weight: 2.97 kg Percentage weight loss: 5.6 Baby's Information Baby's Age at Visit: 3w 1d Baby's Provider or Clinic: [facility] for now, eventually switch to [place] provider Jaundice: Yes Past Experience Past Experience: No Current Frequency of Day Feedings: every 2.5-3 hours Frequency of Night Feedings: same Both Breasts: Yes Suck: starts strong, gets sleepy Latch: comfortable Length of Time: 15 min ea side Goals: at least 1 year Pumping Pumping: Yes Quantity Pumped: using [place], gets about 1/2 oz after fdg. Has a spectra, hasn't used yet Supplementing EBM Supplement: No Formula Supplement: No Baby Elimination Number of Wet Diapers a Day: 6-7/days Number of BM a Day: 3-5/day, yellow and seedy Breast/Nipple Condition Breast Information: Breasts are symmetrical with rounded lower quadrants, intramammary distance is less than 1.5 inches. No erythema. Nipples are supple, everted prior to feeding. Breast Shape: Round Engorgement: No Maternal Nipple Condition - Left: Common Nipple Maternal Nipple Condition - Right: Common Nipple Sore Nipples: No Baby Assessment Skin: Normal and Yellow (to nipple line, jaundice resolving just this week) Tongue/frenulum: Normal/elastic Palate: Average Lips: Relaxed and Symmetrical Jaw Alignment: Symmetrical Mucosa: [place], moist Onsite Observation Pre-Feed weight: 3.178 kg Post-Feed weight: 3.232 kg Milk Transferred (mL): 54 Position: Cross cradle (on left side) and Football (on ght side) Attachment/latch-on achieved: Easily Suck pattern: Suck burst and normal rest Swallow: Audible, consistent Behavior following feed: Alert, content Pre-Nursing Left Nipple: Within Normal Limits Pre-Nursing Right Nipple: Within Normal Limits Post-Nursing Left Nipple: Within Normal Limits Post-Nursing Right Nipple: Within Normal Limits Assessments/Interventions Assessments/Interventions: Babe latched well to mom's LEFT breast, latched easily and stayed nursing for 15 minutes, got sleepy toward the end and needed stimulation to stay engaged in feeding Transferred 22 ml of milk Babe then latched to mom's RIGHT breast, latched in the football hold and nursed for another 15 minutes. Transferred 32 ml of milk. Total transferred 54 ml Babe latched more deeply and stayed more alert and engaged in feeding in football hold. Education provided: Early feeding cues to maximize timing of latching, Asymmetric latch technique for wide/deep latch to increase milk, Transfer for baby and increase comfort for mom, Supply/demand nature of milk supply, Need for frequent stimulation/milk removal, Alternative feeding methods (SNS, cup, finger feeding, bottling) and Pumping for milk management Feeding Plan: Continue feeding every 2-3 hours based on hunger cues, but at least every 3 hours given slow weight gain back to birthweight. Breastfeed for 15 on each breast, listening for active swallowing. Stop feeding if baby is too sleepy. Utilize breast compression near end of feeding to stimulate for active nursing. Pump both breasts for 10-15 minutes after feedings to get milk available for supplementing. If mom gets milk pumped ahead, may be able to pump every other feeding to save some time; if baby is needing all mom pumps will need to pump after each feeding to stimulate her supply. Offer baby 15 ml after each feeding, another 15 ml if she drinks it all based on today's weighted feed. Use bottle for feedings based on preference; bottle nipple options discussed. Discussed supplementing to get weight up and clear all the jaundice; hopeful then baby will nurse stronger and transfer more milk. Recommend weight check in 5-7 days; parents may do at [facility] in [place] to save the [address] call to check in re: ongoing plan. Follow-Up Suggested follow up: Appointment in 1 week and Appointment as needed Time Spent Time spent with patient (min): 90 Meds Home Medications and Allergies Home Medications ?Medication ?Instructions ?Recorded ?Confirmed ?Type VTY-jprr-NV-omega 3 fatty no.1 27 1 cap PO DAILY 03/16/24 10/20/24 History mg-1 mg-300 mg capsule omega 5-ixk-vfe-fish oil 1,200 mg 1 cap PO QDAY 03/16/24 10/20/24 History (144 mg-216 mg) capsule (Fish Oil) cholecalciferol (vitamin D3) 250 250 mcg PO QDAY 04/20/24 10/20/24 History mcg (10,000 unit) capsule Allergies Allergy/AdvReac Type Severity Reaction Status Date / Time No Known Drug Allergies Allergy Verified 10/20/24 14:00
== END 2024-10-26 07:57 | disposition home or self-care (01) ==
LOC: OB LAC 07:57
PROVIDERS: Visit Provider Obstetrics & Gynecology
DX: Z39.1 Encounter for care and examination of lactating mother (principal)
CPT/HCPCS: G0463

== ENCOUNTER 2024-11-01 13:47 | Outpatient (CLI) | payer OTHER, SELFPAY ==
--- NOTE | 2024-11-01 16:23 | W.PM.LAC.MF ---
Follow-Up Note: Mom Date of visit Date of visit: 11/01/24 Reason for consultation: Assistance Needed, Low Milk Supply and Infant Weight Concern Visit Code: Visit Patient's Information Allergies No Known Drug Allergies Allergy (Verified 10/20/24 14:00) Delivery Information Delivery type: Vaginal Gestational Age: 39+2 Gestational Weight For Age: AGA Weight: 3.145 kg Last Weight: 3.178 kg Baby's Information Baby's name: Bhavana Baby's Age at Visit: 28 days Baby's Provider or Clinic: [facility] for now Current Frequency of Day Feedings: every 2.5-3 hours Frequency of Night Feedings: 3-4 hours Both Breasts: Yes Suck: starts strong, gets lazy Latch: seems good Length of Time: 10-15 min ea breast; would stay on longer if allowed but just hanging out Pumping Pumping: Yes Quantity Pumped: 2-3 oz after AM feeding; 1-1.5 ea pump after Supplementing EBM Supplement: Yes (about 1 oz after most feedings) Formula Supplement: No Baby Elimination Number of Wet Diapers a Day: 7-8/day Number of BM a Day: 4 or more Breast/Nipple Assessment Breast/Nipple Assessment: Breasts are symmetrical with rounded lower quadrants, intramammary distance is less than 1.5 inches. No erythema. Nipples are supple, everted prior to feeding. Breast Shape: Round and Pliable Engorgement: No (mom reports she ever really feels full) Maternal Nipple Condition - Left: Common Nipple Maternal Nipple Condition - Right: Common Nipple Sore Nipples: No Onsite Observation Pre-feed weight: 3.3 kg Post-Feed weight: 3.334 kg Milk Transferred (mL): 34 (10 min on RIGHT, 10 on LEFT, 10 on RIGHT) Pre-Nursing Left Nipple: Within Normal Limits Pre-Nursing Right Nipple: Within Normal Limits Post-Nursing Left Nipple: Within Normal Limits Post-Nursing Right Nipple: Within Normal Limits Assessments/Interventions Assessments/Interventions: Observation: Nursed on RIGHT side for 10 min, transferred 16 ml (last week was 32 ml) Nursed on LEFT side for 10 min, transferred 10 ml Nursed on RIGHT again for 10 min (assessing switch nursing), and transferred anothger 8 ml Total: 34 ml Mom has been trying to pump more for milk stimulation but pumping a few times/day; not as much as she 'should have per her words Discussed role of pumping: to have EBM for the baby AND to fully empty breasts to stimulate increase in milk supply. I'm concerned with the prolonged jaundice that Bhavana had, mom's milk supply was challenged and now need to work to bring it back up while making ssure baby gains weight. Baby Bhavana transferred 34 ml in 30 minutes of nursing Then attempted to take 1.25 oz of EBM via [employer] Marley bottle; after 10 minutes of feeding, still had 10 ml left in bottle and even with strong pulls couldn't drain the bottle EBM was transferred to a smaller bottle with standard hospital nipple and baby drank the last 10 ml is about 1.5 minutes. Dad commented he's never seen her drink so fast! Encouraged family to look at other bottle/nipple options as I see many babies with difficulty drinking from the Phl[employer] Marley bottle. parents also have a Spectra bottle, Dr. Barraza at home. Recommend they try one of these options. Baby needs to be able to drink 1oz in about 5 minutes and conserve energy from feedings. Mom will add in pumping after at least 4 feeds/day PLUS 1 feeding that is just pump and bottle to also assess overall milk supply. Goal is 2-3 oz/feeding to meet baby's satiation cues. Discussed concern re: possible posterior tongue tie based on high arched palate, poor milk transfer both breast and bottle and fatiguing Discussed the poor feeding could also be due to other factors, but I do notice a possible posterior tie that could be adding to the complication Mom will also consider galactogogues to see if this helps boost her supply while adding in the pumping Recommend Liquid Gold from [employer] and More Milk Moringa from [employer] (mainly for the goats rue and the moringa components) Education provided: Early feeding cues to maximize timing of latching, Asymmetric latch technique for wide/deep latch to increase milk, Transfer for baby and increase comfort for mom, Supply/demand nature of milk supply, Need for frequent stimulation/milk removal (to build supply), Alternative feeding methods (SNS, cup, finger feeding, bottling) and Pumping for milk management Follow-Up Suggested follow up: Phone call in 24-48 hours Recommend baby be seen by provider for:: [facility] for weight check in 5 days Time Spent Time spent with patient (min): 75 Meds Home Medications and Allergies Home Medications ?Medication ?Instructions ?Recorded ?Confirmed ?Type KAU-gcyj-UT-omega 3 fatty no.1 27 1 cap PO DAILY 03/16/24 10/20/24 History mg-1 mg-300 mg capsule omega 6-ymw-phi-fish oil 1,200 mg 1 cap PO QDAY 03/16/24 10/20/24 History (144 mg-216 mg) capsule (Fish Oil) cholecalciferol (vitamin D3) 250 250 mcg PO QDAY 04/20/24 10/20/24 History mcg (10,000 unit) capsule Allergies Allergy/AdvReac Type Severity Reaction Status Date / Time No Known Drug Allergies Allergy Verified 10/20/24 14:00
== END 2024-11-01 13:48 | disposition home or self-care (01) ==
LOC: OB LAC 13:47
PROVIDERS: Visit Provider Obstetrics & Gynecology
DX: Z39.1 Encounter for care and examination of lactating mother (principal)
CPT/HCPCS: G0463